=== PATIENT | female | born 1980 | race Caucasian/White ===

== ENCOUNTER 2019-04-22 22:44 | Emergency (ER) | payer MEDICAID ==
[~2019-04-22] VITALS: Ht 162.6 cm; Wt 69.2 kg
[~2019-04-22 22:44] MED LIST: LOPI1TAB; TRUV
[2019-04-22 22:57] VITALS: BP 129/82; PULSE 90; RESP 20; Ht 162.6 cm; Wt 69.2 kg
[2019-04-23] MEDS ORDERED: LORAZEPAM 0.5 MG TAB PO ONE (01:00)
== END 2019-04-23 01:42 | disposition home or self-care (01) ==
LOC: FTE 22:44
DX: F41.9 Anxiety disorder, unspecified (principal); Z21 Asymptomatic human immunodeficiency virus [HIV] infection status
CPT/HCPCS: 81025; Z7502; Z7610; 99283